=== PATIENT | male | born 1990 | race Caucasian/White ===

== ENCOUNTER 2016-08-14 09:43 | Emergency (ER) | payer OTHER, BC ==
[~2016-08-14] VITALS: Ht 185.4 cm; Wt 95.5 kg
[~2016-08-14 09:43] MED LIST: NORCO 325 MG-51 TAB PO; ZOFRAN 4MG T4 MG/TAB PO; ZOFRAN ODT4 MG PO
[2016-08-14 09:48] VITALS: TEMP 99.2
[2016-08-14] MEDS ORDERED: ALLERGY MEDICATION (09:52)
[2016-08-14] MEDS ORDERED: NORCO 325 MG-51 TAB PO (10:43)
[2016-08-14] MEDS ORDERED: CRUTCHES MC (10:46)
[2016-08-14 11:23] VITALS: BP 124/86; PULSE 96
== END 2016-08-14 11:24 | disposition home or self-care (01) ==
LOC: COL.ER 09:43
DX: S93.401A Sprain of unspecified ligament of right ankle, initial encounter (principal); W19.XXXA Unspecified fall, initial encounter; X50.0XXA Overexertion from strenuous movement or load, initial encounter
CPT/HCPCS: J1170

== ENCOUNTER 2016-08-18 14:54 | Outpatient (RCR) | payer OTHER ==
[~2016-08-18 14:54] MED LIST changes: +ALLERGY MEDICATION; +CRUTCHES MC
== END 2016-11-16 ==
LOC: WSOH
DX: S93.401S Sprain of unspecified ligament of right ankle, sequela (principal); X50.1XXS Overexertion from prolonged static or awkward postures, sequela; Y99.0 Civilian activity done for income or pay